=== PATIENT | female | born 1995 | race Two or more races ===

== ENCOUNTER 2018-04-14 08:35 | Inpatient (IN) | payer MEDICAID ==
[2018-04-14] VITALS (15 sets, daily range): BP systolic 107–139; BP diastolic 57–79
[~2018-04-14 08:35] MED LIST: AZIT1POW12; OXCA300T26 PO; SUMA100T2 PO; TOPI50TA53; albuterol
[2018-04-14] MEDS ORDERED: LACTATED RINGER'S 1,000 ML IV SCH (08:55)
[2018-04-14] MEDS ORDERED: LACT. RINGERS/OXYTOCIN 20UNITS 1,000 ML IV SCH (08:55)
[2018-04-14] MEDS ORDERED: PHISODERM TOP SOLN 240ML BTL TOP PRN (09:00)
[2018-04-14] MEDS ORDERED: WITCH HAZEL-GLYCERIN PAD TOP PRN (09:00)
[2018-04-14] MEDS ORDERED: LIDOCAINE 2% (LOCAL ANESTH.) PF 5ml SDV ID ONE (09:00)
[2018-04-14] MEDS ORDERED: DERMOPLAST 60ML BOTTLE TOP PRN (09:00)
[2018-04-14] MEDS ORDERED: PENICILLIN G POT 5MIL/D5 50ML 50 ML IV ONE (09:00)
[2018-04-14] MEDS ORDERED: METHYLERGONOVINE MALEATE 0.2 MG/ML AMP IM PRN (09:00)
[2018-04-14] MEDS ORDERED: NALBUPHINE HCL 10 MG/1ml INJECTION IV PRN (09:00)
[2018-04-14] MEDS ORDERED: LIDOCAINE 2% (LOCAL ANESTH.) PF 5ml SDV ONE (09:04)
[2018-04-14] MEDS: DOCUSATE CALCIUM 240 MG CAP PO SCH (10:00)
[2018-04-14 10:06] LABS: Basophils # (auto) 0 uL; Eosinophils # (auto) 0 uL; Lymphocytes # (auto) 1.3 uL; Monocytes # (auto) 0.3 uL; White Blood Cell 6.6 10^3/uL (4.4-10.8)
[2018-04-14 10:08] LABS: Basophils % (auto) 0.5 % (0.0-2.0); Eosinophils % (auto) 0.3 % (0.0-7.0); Hematocrit 25.4 % (36.0-46.0); Hemoglobin 7.7 g/dL (12.2-16.2); Lymphocytes % (auto) 20.2 % (10.0-50.0); Mean Corpuscular Hemoglobin 18.8 pg (28.0-32.0); Mean Corpuscular Hgb Conc. 30.3 g/dL (32.0-36.0); Monocytes % (auto) 3.9 % (0.0-12.0); Neutrophils % (auto) 75.1 % (37.0-80.0); Nucleated Red Blood Cells % 0.1 %; Platelet Count (auto) 195 10^3/uL (140-450); Red Cell Distribution Width 19.3 % (11.8-14.3)
[2018-04-14 10:26] LABS: Albumin 2.3 g/dL (3.4-5.0); BUN/Creatinine Ratio 10.6; Bilirubin, Total 0.8 mg/dL (0.2-1.0); Calcium 7.8 mg/dL (8.5-10.1); Potassium 3.4 mmol/L (3.5-5.1); Total Protein 6.2 g/dL (6.4-8.2); Uric Acid 6.2 mg/dL (2.6-6.0)
[2018-04-14 10:40] LABS: INR 0.93 (0.9-1.15); Partial Thromboplastin Time 27.5 sec (23.78-33.04)
[2018-04-14] MEDS ORDERED: LACTATED RINGER'S 1,000 ML IV ONE (11:45)
[2018-04-14] MEDS ORDERED: LACT. RINGERS/OXYTOCIN 20UNITS 1,000 ML IV ONE (12:02)
[2018-04-14] MEDS ORDERED: OXYTOCIN 10UNIT/ML 1ML VIAL IV ONE (12:10)
[2018-04-14] MEDS ORDERED: PENICILLIN G POTASSIUM 2,500,000 UNITS in D5W 5% 50 ML IV SCH (13:00)
[2018-04-14 14:20] LABS: INR 0.99 (0.9-1.15); Partial Thromboplastin Time 29.3 sec (23.78-33.04); Prothrombin Time 10.6 sec (9.27-12.13)
[2018-04-14 15:21] LABS: Urine Bacteria NONE SEEN /hpf (None Seen); Urine Blood 3+ /uL (Negative); Urine Mucus FEW (None Seen); Urine Specific Gravity 1.022 (1.001-1.035); Urine WBC 6 /hpf (0 - 5)
[2018-04-14 15:32] LABS: Fibrinogen 268.7 mg/dL (177-375)
[2018-04-14 16:25] LABS: Basophils # (auto) 0 uL; Basophils % (auto) 0.3 % (0.0-2.0); Eosinophils # (auto) 0 uL; Eosinophils % (auto) 0.1 % (0.0-7.0); Hematocrit 21.3 % (36.0-46.0); Lymphocytes # (auto) 1.3 uL; Lymphocytes % (auto) 11.8 % (10.0-50.0); Mean Corpuscular Hemoglobin 18.5 pg (28.0-32.0); Mean Corpuscular Hgb Conc. 29.6 g/dL (32.0-36.0); Mean Corpuscular Volume 62.5 fL (80.0-100.0); Monocytes # (auto) 0.5 uL; Monocytes % (auto) 4.5 % (0.0-12.0); Neutrophils # (auto) 9.2 uL; Neutrophils % (auto) 83.3 % (37.0-80.0); Nucleated Red Blood Cells % 0.1 %; Platelet Count (auto) 206 10^3/uL (140-450); Red Blood Cells 3.41 10^6/uL (4.0-5.20); Red Cell Distribution Width 19.3 % (11.8-14.3); White Blood Cell 11.1 10^3/uL (4.4-10.8)
[2018-04-14 16:27] LABS: Hemoglobin 6.3 g/dL (12.2-16.2)
[2018-04-14] MEDS: IBUPROFEN 600 MG TAB PO PRN (19:46)
[2018-04-14 21:14] LABS: Alcohol, Urine < 3.0 mg/dL (0-5); Amphetamine Screen, Urine POSITIVE (NEGATIVE); Barbiturate Scree,Urine NEGATIVE (NEGATIVE); Benzodiazephine Screen, Urine NEGATIVE (NEGATIVE); Cannabinoid Screen, Urine NEGATIVE (NEGATIVE); Cocaine Screen, Urine NEGATIVE (NEGATIVE); Opiate Scree,Urine NEGATIVE (NEGATIVE); Phencyclidine Screen, Urine NEGATIVE (NEGATIVE)
[2018-04-14] MEDS: SODIUM CHLORIDE 0.9% 1,000 ML IV SCH (23:23)
[2018-04-15] VITALS (17 sets, daily range): BP systolic 101–127; BP diastolic 53–78
[2018-04-15] MEDS: IBUPROFEN 600 MG TAB PO PRN (03:31)
[2018-04-15 06:06] LABS: RPR Non Reactive (Non Reactive)
[2018-04-15 06:18] LABS: Basophils # (auto) 0 uL; Monocytes # (auto) 0.6 uL; Monocytes % (auto) 7.3 % (0.0-12.0)
[2018-04-15 06:20] LABS: Basophils % (auto) 0.3 % (0.0-2.0); Eosinophils # (auto) 0.1 uL; Eosinophils % (auto) 0.7 % (0.0-7.0); Hematocrit 19.8 % (36.0-46.0); Lymphocytes # (auto) 1.9 uL; Lymphocytes % (auto) 22.1 % (10.0-50.0); Mean Corpuscular Hemoglobin 20.5 pg (28.0-32.0); Mean Corpuscular Hgb Conc. 31.2 g/dL (32.0-36.0); Mean Corpuscular Volume 65.7 fL (80.0-100.0); Neutrophils # (auto) 5.9 uL; Neutrophils % (auto) 69.6 % (37.0-80.0); Nucleated Red Blood Cells % 0.1 %; Platelet Count (auto) 156 10^3/uL (140-450); Red Blood Cells 3.01 10^6/uL (4.0-5.20); White Blood Cell 8.5 10^3/uL (4.4-10.8)
[2018-04-15 06:31] LABS: Red Cell Distribution Width 22.8 % (11.8-14.3)
[2018-04-15 06:33] LABS: Hemoglobin 6.2 g/dL (12.2-16.2)
[2018-04-15 06:34] LABS: Albumin 1.7 g/dL (3.4-5.0); BUN/Creatinine Ratio 16.7; Calcium 7.3 mg/dL (8.5-10.1); Potassium 3.8 mmol/L (3.5-5.1)
[2018-04-15 06:36] LABS: Bilirubin, Total 0.9 mg/dL (0.2-1.0); Total Protein 4.7 g/dL (6.4-8.2)
[2018-04-15] MEDS: DOCUSATE CALCIUM 240 MG CAP PO SCH (10:00)
[2018-04-15 13:06] LABS: Rubella Antibodies, IgG <0.90 index (Immune >0.99)
[2018-04-15] MEDS: SODIUM CHLORIDE 0.9% 1,000 ML IV SCH (13:15)
[2018-04-15 21:21] LABS: Basophils # (auto) 0 uL; Basophils % (auto) 0.3 % (0.0-2.0); Eosinophils # (auto) 0.1 uL; Hemoglobin 8.2 g/dL (12.2-16.2); Monocytes # (auto) 0.4 uL; Nucleated Red Blood Cells % 0.3 %
[2018-04-15 21:24] LABS: Eosinophils % (auto) 0.8 % (0.0-7.0); Hematocrit 26.1 % (36.0-46.0); Lymphocytes % (auto) 24.9 % (10.0-50.0); Mean Corpuscular Hemoglobin 22.3 pg (28.0-32.0); Mean Corpuscular Hgb Conc. 31.4 g/dL (32.0-36.0); Mean Corpuscular Volume 71.1 fL (80.0-100.0); Neutrophils # (auto) 5.6 uL; Platelet Count (auto) 145 10^3/uL (140-450); Red Blood Cells 3.68 10^6/uL (4.0-5.20); White Blood Cell 8.1 10^3/uL (4.4-10.8)
[2018-04-15 21:25] LABS: Red Cell Distribution Width 25.3 % (11.8-14.3)
[2018-04-16 03:00] VITALS: BP 131/81
[2018-04-16 06:50] VITALS: BP 145/83
[2018-04-16] MEDS: IBUPROFEN 600 MG TAB PO PRN (07:26)
[2018-04-16] MEDS: DOCUSATE CALCIUM 240 MG CAP PO SCH (09:57)
[2018-04-16 10:55] VITALS: BP 128/72
== END 2018-04-16 12:00 | disposition home or self-care (01) | DRG 560 ==
LOC: OBSVTOIN 08:35 → LDRP 08:35
PROVIDERS: ADMIT Specialist; ATTEND Specialist
PROC: 10E0XZZ Delivery of Products of Conception, External Approach (ICD-10-PCS; principal; 2018-04-14)
PROC: 30233N1 Transfusion of Nonautologous Red Blood Cells into Peripheral Vein, Percutaneous Approach (ICD-10-PCS; 2018-04-14)
PROC: 10907ZC Drainage of Amniotic Fluid, Therapeutic from Products of Conception, Via Natural or Artificial Opening (ICD-10-PCS; 2018-04-14)
DX: O45.93 Premature separation of placenta, unspecified, third trimester (principal); O99.324 Drug use complicating childbirth; D64.9 Anemia, unspecified; Z37.0 Single live birth; Z3A.37 37 weeks gestation of pregnancy; F19.10 Other psychoactive substance abuse, uncomplicated
CPT/HCPCS: 36415; 36430; 51702; 59025; 59409; 80053; 80307; 81001; 84550; 85025; 85384; 85610; 85730; 86592; 86706; 86762; 86850; 86900; 86901; 86920; 87077; 87081; 87186; 87205; 94762; 96361; 96365; 96366; J2001; J2590; J7060

== ENCOUNTER 2019-04-06 15:32 | Emergency (ER) | payer MEDICAID | END 2019-04-06 15:48 | disposition left against medical advice (07) | LOC: ER 15:46 | DX: R51 Headache (principal); Z53.21 Procedure and treatment not carried out due to patient leaving prior to being seen by health care provider ==

== ENCOUNTER → 2019-11-21 | Emergency (ER) | payer MEDICAID ==
[~2019-11-21] VITALS: Ht 162.6 cm; Wt 85.7 kg
[~2019-11-21] MED LIST changes: +ACETAMINOPHEN 500 MG TAB PO ONE; -AZIT1POW12; +IBUPROFEN 800 MG TAB PO ONE; -OXCA300T26 PO; -SUMA100T2 PO; -TOPI50TA53; -albuterol
[2019-11-21 16:25] VITALS: BP 112/64
== END | disposition home or self-care (01) ==
LOC: MERGE 16:06 → ER 16:06
DX: S92.352A Displaced fracture of fifth metatarsal bone, left foot, initial encounter for closed fracture (principal); S92.332A Displaced fracture of third metatarsal bone, left foot, initial encounter for closed fracture; S92.212A Displaced fracture of cuboid bone of left foot, initial encounter for closed fracture; S82.202A Unspecified fracture of shaft of left tibia, initial encounter for closed fracture; F17.210 Nicotine dependence, cigarettes, uncomplicated; V29.9XXA Motorcycle rider (driver) (passenger) injured in unspecified traffic accident, initial encounter; Y93.89 Activity, other specified; Y92.89 Other specified places as the place of occurrence of the external cause; Y99.8 Other external cause status
CPT/HCPCS: 29505; 73562; 73610; 73630

== ENCOUNTER 2021-01-06 00:47 | Inpatient (IN) | payer MEDICAID ==
[~2021-01-06] VITALS: Ht 170.2 cm; Wt 88.9 kg
[2021-01-06] MEDS ORDERED: LACTATED RINGER'S 1,000 ML IV SCH (01:15)
[2021-01-06] MEDS ORDERED: PHISODERM TOP SOLN 240ML BTL TOP PRN (01:15)
[2021-01-06] MEDS ORDERED: ACETAMINOPHEN 325 MG TAB PO PRN (01:15)
[2021-01-06] MEDS ORDERED: DERMOPLAST 60ML BOTTLE TOP PRN (01:15)
[2021-01-06] MEDS ORDERED: WITCH HAZEL-GLYCERIN PAD TOP PRN (01:15)
[2021-01-06] MEDS ORDERED: LACT. RINGERS/OXYTOCIN 20UNITS 500 ML IV ONE (01:15)
[2021-01-06] MEDS ORDERED: IBUPROFEN 600 MG TAB PO PRN (01:15)
[2021-01-06] MEDS ORDERED: LACT. RINGERS/OXYTOCIN 20UNITS 1,000 ML IV SCH (01:45)
[2021-01-06 01:59] LABS: Basophils # (auto) 0 10 ^3/uL (0-0.2); Basophils % (auto) 0.2 % (0.0-2.0); Eosinophils # (auto) 0.1 10 ^3/uL (0-0.8)
[2021-01-06 02:01] LABS: Eosinophils % (auto) 1.1 % (0.0-7.0); Hematocrit 28.8 % (36.0-46.0); Lymphocytes # (auto) 1.1 10 ^3/uL (0.4-5.4); Lymphocytes % (auto) 10.5 % (10.0-50.0); Mean Corpuscular Hemoglobin 20.1 pg (28.0-32.0); Mean Corpuscular Hgb Conc. 31.4 g/dL (32.0-36.0); Monocytes # (auto) 0.4 10 ^3/uL (0-1.3); Monocytes % (auto) 3.9 % (0.0-12.0); Neutrophils # (auto) 8.7 10 ^3/uL (1.6-8.6); Neutrophils % (auto) 84.3 % (37.0-80.0); Platelet Count (auto) 223 10^3/uL (140-450); Red Cell Distribution Width 17.6 % (11.8-14.3); White Blood Cell 10.3 10^3/uL (4.4-10.8)
[2021-01-06 02:14] LABS: INR 0.99 (0.9-1.15); Partial Thromboplastin Time 28.2 sec (23.0-31.2)
[2021-01-06 02:17] LABS: Albumin 2.5 g/dL (3.4-5.0); BUN/Creatinine Ratio 15.3; Calcium 8.4 mg/dL (8.5-10.1); Potassium 3.4 mmol/L (3.5-5.1)
[2021-01-06 02:27] LABS: Urine Bacteria MOD /hpf (None Seen); Urine Blood 2+ /uL (Negative); Urine Mucus FEW (None Seen); Urine Specific Gravity 1.034 (1.001-1.035); Urine WBC 4 /hpf (0 - 5)
[2021-01-06 02:32] LABS: Alcohol, Urine < 3.0 mg/dL (0-10); Amphetamine Screen, Urine POSITIVE (NEGATIVE); Barbiturate Scree,Urine NEGATIVE (NEGATIVE); Benzodiazephine Screen, Urine NEGATIVE (NEGATIVE); Cannabinoid Screen, Urine NEGATIVE (NEGATIVE); Cocaine Screen, Urine NEGATIVE (NEGATIVE); Opiate Scree,Urine NEGATIVE (NEGATIVE); Phencyclidine Screen, Urine NEGATIVE (NEGATIVE)
[2021-01-06 07:03] VITALS: BP 105/53
[2021-01-06] MEDS ORDERED: FERROUS SULFATE 325mg EC TAB PO SCH ×2 (08:00→22:00)
[2021-01-06 10:39] VITALS: BP 102/55
[2021-01-06 13:21] LABS: Basophils # (auto) 0.1 10 ^3/uL (0-0.2); Basophils % (auto) 0.6 % (0.0-2.0); Eosinophils # (auto) 0.3 10 ^3/uL (0-0.8); Eosinophils % (auto) 3.4 % (0.0-7.0); Hematocrit 23.8 % (36.0-46.0); Hemoglobin 7.3 g/dL (12.2-16.2); Lymphocytes # (auto) 1.8 10 ^3/uL (0.4-5.4); Lymphocytes % (auto) 19.4 % (10.0-50.0); Mean Corpuscular Hemoglobin 19.7 pg (28.0-32.0); Mean Corpuscular Hgb Conc. 30.7 g/dL (32.0-36.0); Mean Corpuscular Volume 64.3 fL (80.0-100.0); Monocytes # (auto) 0.5 10 ^3/uL (0-1.3); Monocytes % (auto) 5.9 % (0.0-12.0); Neutrophils # (auto) 6.5 10 ^3/uL (1.6-8.6); Neutrophils % (auto) 70.7 % (37.0-80.0); Nucleated Red Blood Cells % 0.1 %; Platelet Count (auto) 176 10^3/uL (140-450); Red Cell Distribution Width 17.4 % (11.8-14.3); White Blood Cell 9.2 10^3/uL (4.4-10.8)
[2021-01-06 14:20] VITALS: BP 107/54
[2021-01-07 05:06] LABS: Rubella Antibodies, IgG <0.90 index (Immune >0.99)
[2021-01-07 06:06] LABS: RPR Non Reactive (Non Reactive)
== END 2021-01-06 17:00 | disposition left against medical advice (07) | DRG 560 ==
LOC: LDRP 00:47
PROVIDERS: ADMIT Obstetrics & Gynecology; ATTEND Obstetrics & Gynecology
PROC: 10E0XZZ Delivery of Products of Conception, External Approach (ICD-10-PCS; principal; 2021-01-06)
DX: O77.0 Labor and delivery complicated by meconium in amniotic fluid (principal); O90.81 Anemia of the puerperium; Z20.822 Contact with and (suspected) exposure to COVID-19; Z53.29 Procedure and treatment not carried out because of patient's decision for other reasons; Z37.0 Single live birth; Z3A.39 39 weeks gestation of pregnancy
CPT/HCPCS: 36415; 59409; 80053; 80307; 81001; 85025; 85610; 85730; 86592; 86703; 86762; 86850; 86900; 86901; 87340; 87426; 94760; 96360; 96361; 96365; 96366; 96372; G0378; J2590

== ENCOUNTER 2022-03-24 21:44 | Emergency (ER) | payer MEDICAID | END 2022-03-24 22:37 | disposition left against medical advice (07) | LOC: ER 21:44 | DX: R06.02 Shortness of breath (principal); Z53.21 Procedure and treatment not carried out due to patient leaving prior to being seen by health care provider ==

== ENCOUNTER 2022-12-05 19:21 | Emergency (ER) | payer MEDICAID ==
[~2022-12-05] VITALS: Ht 167.6 cm; Wt 68.0 kg
[2022-12-05 19:21] VITALS: BP 96/55
== END 2022-12-06 03:38 | disposition left against medical advice (07) ==
LOC: ER 19:21
DX: Z43.1 Encounter for attention to gastrostomy (principal); Z53.21 Procedure and treatment not carried out due to patient leaving prior to being seen by health care provider

== ENCOUNTER 2022-12-07 10:06 | Emergency (ER) | payer MEDICAID ==
[~2022-12-07] VITALS: Ht 167.6 cm; Wt 81.8 kg
[2022-12-07 10:30] VITALS: BP 96/57
== END 2022-12-07 12:07 | disposition left against medical advice (07) ==
LOC: ER 10:06
DX: Z43.1 Encounter for attention to gastrostomy (principal); Z53.21 Procedure and treatment not carried out due to patient leaving prior to being seen by health care provider

== ENCOUNTER 2022-12-24 15:41 | Emergency (ER) | payer MEDICAID ==
[~2022-12-24] VITALS: Ht 167.6 cm; Wt 68.2 kg
[2022-12-24 15:48] VITALS: BP 93/56
== END 2022-12-24 18:22 | disposition left against medical advice (07) ==
LOC: ER 15:41
DX: R10.12 Left upper quadrant pain (principal); R10.11 Right upper quadrant pain; F12.90 Cannabis use, unspecified, uncomplicated; F15.90 Other stimulant use, unspecified, uncomplicated; Z53.29 Procedure and treatment not carried out because of patient's decision for other reasons